=== PATIENT | female | born 1970 | race African-American/Black ===

== ENCOUNTER 2019-06-23 18:40 | Emergency (ER) | payer MEDICAID ==
[~2019-06-23] VITALS: Ht 157.5 cm; Wt 77.3 kg
[~2019-06-23 18:40] MED LIST: NOCURR
[2019-06-23] MEDS ORDERED: IBUPROFEN 600 MG TABLET PO ONE (19:45)
[2019-06-23] MEDS ORDERED: ACETAMINOPHEN 500 MG TABLET PO ONE (19:45)
[2019-06-23] MEDS ORDERED: LIDOCAINE 5% TRANSDERMAL PATCH TD ONE (20:15)
[2019-06-23 22:31] VITALS: BP 126/80
== END 2019-06-23 22:42 | disposition home or self-care (01) ==
LOC: EMS 18:41
DX: M25.571 Pain in right ankle and joints of right foot (principal); M25.551 Pain in right hip; M25.561 Pain in right knee; R03.0 Elevated blood-pressure reading, without diagnosis of hypertension; V49.9XXA Car occupant (driver) (passenger) injured in unspecified traffic accident, initial encounter; Y93.89 Activity, other specified; Y92.89 Other specified places as the place of occurrence of the external cause; Y99.8 Other external cause status
CPT/HCPCS: 73502